=== PATIENT | female | born 1990 | race Caucasian/White ===

== ENCOUNTER 2020-08-17 15:24 | Emergency (ER) | payer OTHER, SELFPAY ==
[2020-08-17 15:36] VITALS: BP 113/75; PULSE 65; RESP 20; TEMP 36.9; O2SAT 100
[2020-08-17] MEDS: ONDANSETRON 4 MG/2 ML INJ IV (16:13)
[2020-08-17] MEDS: SODIUM CHLORIDE 0.9% 1,000 ML 1000 ML IV (16:13)
--- NOTE | 2020-08-17 16:26 | ED.ABDPAIN ---
HPI - Abdominal Pain General Chief Complaint: Abdominal Pain Stated Complaint: ABD pain, N/V Time Seen by Provider: 08/17/20 16:25 Source: EMS Mode of arrival: EMS History of Present Illness HPI narrative: This is a 29-year-old female comes in with complaint of abdominal pain that is been intermittent for the last several days starting . This is 6 days prior. Patient states it started initially was quite severe upper abdomen radiates towards her back. Patient states she has had nausea and vomiting intermittently. She had 3 episodes today. She has had chills but no known fevers. Patient states she has not had any urinary symptoms. She has not had a bowel movement in the last 2-3 days. She states she is not passing gas today. Patient states she had not had similar symptoms before this. Patient denies any medical issues. No prior surgeries. States she has all of her part. She was seen at [facility] ER and states she was evaluated but did not have any imaging. Patient denies any tobacco, alcohol or illicit. Related Data Previous Rx's Medication Instructions Recorded meloxicam 7.5 mg tablet 7.5 mg PO BID #10 tab 08/17/20 Review of Systems Review of Systems ROS Unobtainable: All systems reviewed & are unremarkable except as noted in HPI and below Exam Narrative Exam Narrative: GENERAL: Alert and oriented x three, female in moderate distress. Patient is standing. Patient states she is feels quite uncomfortable HEENT: Head normocephalic, atraumatic, EOMI, pupils reactive, face symmetric, moist mucous membranes NECK: Supple, full range of motion CARDIOVASCULAR: Regular rate and rhythm without murmurs, rubs or gallops. RESPIRATORY: Breath sounds equal bilaterally, no wheezes rales or rhonchi. ABDOMEN: Soft, nontender. Normoactive bowel sounds all 4 quadrants. No guarding or rebound, rigidity, no mass : No CVA tenderness EXTREMITIES: Normal range of motion, no clubbing or edema. Neurovascularly intact NEUROLOGICAL: Cranial nerves II through XII grossly intact. Moving all extremities SKIN: Warm, dry, no petechiae, no rashes or lesions. Initial Vital Signs Initial Vital Signs: Vital Signs Temperature 98.4 F 08/17/20 15:36 Pulse Rate 65 08/17/20 15:36 Respiratory Rate 20 08/17/20 15:36 Blood Pressure 113/75 08/17/20 15:36 Pulse Oximetry 100 08/17/20 15:36 Course Orders Ordered: ED Orders 08/17/20 15:35 EKG-12 Lead Stat 08/17/20 16:10 Complete Blood Count AUTO DIFF Stat Comprehensive Metabolic Panel Stat Lipase Stat 08/17/20 16:40 US abdomen complete Stat Discontinued Medications Sodium Chloride (Normal Saline 0.9%) 1,000 mls @ 1,000 mls/hr IV BOLUS ONE Stop: 08/17/20 16:44 Last Admin: 08/17/20 16:13 Dose: 1,000 mls/hr Documented by: SIA Ketorolac Tromethamine (Ketorolac 30 Mg/Ml Vial) 15 mg IV NOW ONE Stop: 08/17/20 16:40 Last Admin: 08/17/20 17:00 Dose: 15 mg Documented by: ABIEL Magnesium Citrate (Magnesium Citrate 300 Ml Solution) 300 ml PO NOW ONE Stop: 08/17/20 19:21 Ondansetron HCl (Ondansetron 4 Mg/2 Ml Inj) 4 mg IV NOW ONE Stop: 08/17/20 15:46 Last Admin: 08/17/20 16:13 Dose: 4 mg Documented by: SIA Pantoprazole Sodium (Pantoprazole 40 Mg Vial) 40 mg IV NOW ONE Stop: 08/17/20 16:43 Last Admin: 08/17/20 17:00 Dose: 40 mg Documented by: ABIEL Reevaluation(s) Reevaluation #1: Patient feels much better after toradol. Reviewed labs, imaging with patient. On exam she was soft, with epigastric tender but not distended is my suspicion for bowel obstruction is low. Patient was asked return if she has worsening, continuing to have emesis or has not had a bowel movement the next 24 hours. Patient is agreeable to this plan. Vital Signs Vital signs: Vital Signs - 8 hr 08/17/20 15:36 Temperature 98.4 F Pulse Rate 65 Respiratory Rate 20 Blood Pressure 113/75 Pulse Oximetry 100 MDM - Abdominal Pain Lab Data Result diagrams: 08/17/20 16:10 08/17/20 16:10 Labs: Lab Results 08/17/20 08/17/20 Range/Units 16:10 16:10 WBC 9.1 (4.5-11.0) X10^3/uL RBC 4.90 (4.0-5.2) X10^6/uL Hgb 14.6 (12.0-16.0) g/dL Hct 42.9 (36-46) % MCV 87.4 (80-100) fL MCH 29.8 (26-34) PG MCHC 34.1 (30-36) % RDW 13.0 (11.6-14.8) % Plt Count 284 (150-400) X10^3/uL Neut % (Auto) 68.1 (50-75) % Lymph % (Auto) 22.4 L (25-40) % [place] % (Auto) 8.3 (3-14) % Eos % (Auto) 0.6 L (2-4) % Baso % (Auto) 0.6 (0-2) % Neut # (Auto) 6200 (5006-8204) /uL Lymph # (Auto) 2000 (5902-6225) /uL [place] # (Auto) 800 (0-900) /uL Eos # (Auto) 100 (0-450) /uL Baso # (Auto) 100 (0-100) /uL Sodium 140 (137-145) mmol/L Potassium 3.3 L (3.4-5.1) mmol/L Chloride 103 (98-107) mmol/L Carbon Dioxide 25 (22-32) mmol/L BUN 13 (7-17) mg/dL Creatinine 0.94 (0.52-1.04) mg/dL Estimated GFR > 60.0 (>60) mL/min BUN/Creatinine Ratio 13.8 (6-22) Glucose 80 (70-100) mg/dL Calcium 9.8 (8.4-10.2) mg/dL Total Bilirubin 0.8 (0.2-1.3) mg/dL AST 34 (14-36) IU/L ALT 29 (<35) IU/L Alkaline Phosphatase 89 (38-126) U/L Total Protein 8.3 H (6.3-8.2) g/dL Albumin 4.7 (3.5-5.0) g/dL Globulin 3.6 (1.7-4.1) g/dL Albumin/Globulin Ratio 1.3 (1.0-2.8) Lipase 71 (23-300) U/L Point of care testing: Point of Care Testing Test Results Negative Urine Dip Bedside Urine Glucose Negative Bedside Urine Bilirubin - Negative Bedside Urine Ketone +/- 5 Urine Specific [place] 1.015 Bedside Urine Occult Blood - Negative Bedside Urine pH 6.5 Bedside Urine Protein - Negative Bedside Urine Urobilinogen - Negative Bedside Urine Nitrite - Negative Bedside Urine Leukocytes - Negative Esterase Imaging Data US - abdomen: Radiologist's Impression: Magdalena Mercado 29 F [address] [id number] ReportSigned Patient: Madalyn Mercado#: [id number]: 1990Acct:[id number]/Sex: 29 te of Service: 08/17/20Loc: EDAccession Number: [id number] Procedure: US abdomen complete Ordering Provider: Destiny Landin D.O. PROCEDURE: US ABDOMEN COMPLETE INDICATIONS: abdominal pain, no BM> TECHNIQUE: Real-time scanning was performed of the abdominal and retroperitoneal organs, with image documentation. COMPARISON: None. FINDINGS: Liver: Liver is normal in size and homogeneous in echotexture. Gallbladder: Gallbladder is normal in sonographic appearance without gallstones, gallbladder wall thickening, pericholecystic fluid, or abnormal sonographic Morris's. However, patient was given pain medication prior to the study. Biliary ducts: Intrahepatic bile ducts are non-dilated. Extrahepatic bile duct caliber measures 6 mm. Normal is 6-7 mm or less in diameter, or 10 mm or less post-cholecystectomy. Pancreas: Visualized portions of the pancreas are sonographically normal. Spleen: Spleen is normal in size and homogeneous in echotexture. Kidneys: Kidneys are normal in size and echotexture. Right kidney measures 10.5 cm long; left kidney measures 11.5 cm long. No hydronephrosis or nephrolithiasis. No solid masses. Aorta: Visualized aorta is normal in caliber at less than 3 cm. Iliacs: Not imaged IVC: Intrahepatic inferior vena cava is patent. Miscellaneous: No free abdominal fluid. IMPRESSION: Abdomen without acute sonographic abnormalities. No evidence for acute cholecystitis although inaccurate sonographic Morris's cannot be elicited given administration of pain medication prior to this exam. No evidence for cholelithiasis. Dictated by: Manuel Dorantes M.D. on 08/17/2020 at 19:06 Approved by: Manuel Dorantes M.D. on 08/17/2020 at 19:08 ECG Data Interpretation: Sinus bradycardia, rate of 54, QRS of 90, UT 140 and QTC of 417. Discharge Plan Departure Patient Disposition: Home Clinical Impression: Abdominal pain Instructions: DI for Abdominal Pain-Adult Activity Restrictions/Additional Instructions: Follow up in the next 24-48 hours for recheck. Take stool softeners daily until bowel movement. Take 1/2 bottle of Mag citrate, weight 4-5 hours if you have not had any changes drink the 2-1/2nd bottle. You may continue with meloxicam every 12 hours and or Tylenol up to a 1000 mg every 8 hours Please return for fevers, worsening abdominal pain, persistent vomiting, if you have still not had a bowel movement for 24 hours or other new or concerning symptoms. Prescriptions: New meloxicam 7.5 mg tablet 7.5 mg PO BID Qty: 10 RF: 0 Referrals: Wilbur Szymanski MD [Physician] -
--- NOTE | 2020-08-17 16:40 | DI.US.S_ITS ---
PROCEDURE: US ABDOMEN COMPLETE INDICATIONS: abdominal pain, no BM> TECHNIQUE: Real-time scanning was performed of the abdominal and retroperitoneal organs, with image documentation. COMPARISON: None. FINDINGS: Liver: Liver is normal in size and homogeneous in echotexture. Gallbladder: Gallbladder is normal in sonographic appearance without gallstones, gallbladder wall thickening, pericholecystic fluid, or abnormal sonographic Morris's. However, patient was given pain medication prior to the study. Biliary ducts: Intrahepatic bile ducts are non-dilated. Extrahepatic bile duct caliber measures 6 mm. Normal is 6-7 mm or less in diameter, or 10 mm or less post-cholecystectomy. Pancreas: Visualized portions of the pancreas are sonographically normal. Spleen: Spleen is normal in size and homogeneous in echotexture. Kidneys: Kidneys are normal in size and echotexture. Right kidney measures 10.5 cm long; left kidney measures 11.5 cm long. No hydronephrosis or nephrolithiasis. No solid masses. Aorta: Visualized aorta is normal in caliber at less than 3 cm. Iliacs: Not imaged IVC: Intrahepatic inferior vena cava is patent. Miscellaneous: No free abdominal fluid. IMPRESSION: Abdomen without acute sonographic abnormalities. No evidence for acute cholecystitis although inaccurate sonographic Morris's cannot be elicited given administration of pain medication prior to this exam. No evidence for cholelithiasis. Dictated by: Manuel Dorantes M.D. on 08/17/2020 at 19:06 Approved by: Manuel Dorantes M.D. on 08/17/2020 at 19:08
[2020-08-17 16:43] LABS: Add Manual Diff / Slide Review NO; Basophils Absolute Auto 100 /uL (0-100); Basophils Percent Auto 0.6 % (0-2); Eosinophils Absolute Auto 100 /uL (0-450); Eosinophils Percent Auto 0.6 % (2-4); Hematocrit 42.9 % (36-46); Hemoglobin 14.6 g/dL (12.0-16.0); Lymphocytes Absolute Auto 2000 /uL (1100-4500); Lymphocytes Percent Auto 22.4 % (25-40); Mean Corpuscular HGB Conc 34.1 % (30-36); Mean Corpuscular Hemoglobin 29.8 PG (26-34); Mean Corpuscular Volume 87.4 fL (80-100); Monocytes Absolute Auto 800 /uL (0-900); Monocytes Percent Auto 8.3 % (3-14); Neutrophils Absolute Auto 6200 /uL (1500-7000); Neutrophils Percent Auto 68.1 % (50-75); Platelet Count 284 X10^3/uL (150-400); White Blood Cell Count 9.1 X10^3/uL (4.5-11.0)
[2020-08-17 16:53] LABS: Alanine Aminotransferase 29 IU/L (<35); Albumin 4.7 g/dL (3.5-5.0); Albumin Globulin Ratio 1.3 (1.0-2.8); Alkaline Phosphatase 89 U/L (38-126); Aspartate Aminotransferase 34 IU/L (14-36); BUN Creatinine Ratio 13.8 (6-22); Bilirubin Total 0.8 mg/dL (0.2-1.3); Blood Urea Nitrogen 13 mg/dL (7-17); Calcium 9.8 mg/dL (8.4-10.2); Carbon Dioxide 25 mmol/L (22-32); Chloride 103 mmol/L (98-107); Estimated Glomerular Filt Rate > 60.0 mL/min (>60); Globulin 3.6 g/dL (1.7-4.1); Glucose 80 mg/dL (70-100); HEMOLYSIS 48 (0-50); Lipase 71 U/L (23-300); Potassium 3.3 mmol/L (3.4-5.1); Sodium 140 mmol/L (137-145); Total Protein 8.3 g/dL (6.3-8.2)
[2020-08-17] MEDS: KETOROLAC 30 MG/ML VIAL 15 MG IV (17:00)
[2020-08-17] MEDS: PANTOPRAZOLE 40 MG VIAL IV (17:00)
[2020-08-17] MEDS: MAGNESIUM CITRATE 300 ML SOLUTION PO (19:27)
== END 2020-08-17 19:30 | disposition home or self-care (01) ==
PROVIDERS: Emergency Provider Emergency Medicine
DX: R10.9 Unspecified abdominal pain (principal); R11.2 Nausea with vomiting, unspecified
CPT/HCPCS: 36415; 76700; 80053; 81003; 81025; 83690; 85025; 93005; 96361; 96374; 96375; 99284; C9113; J1885; J2405

== ENCOUNTER 2020-08-22 15:09 | Emergency (ER) | payer OTHER, SELFPAY ==
[2020-08-22 15:12] VITALS: BP 139/79; PULSE 89; RESP 20; TEMP 37.3; O2SAT 100
[2020-08-22 16:29] LABS: Add Manual Diff / Slide Review NO; Basophils Absolute Auto 100 /uL (0-100); Basophils Percent Auto 0.7 % (0-2); Eosinophils Absolute Auto 100 /uL (0-450); Eosinophils Percent Auto 1.1 % (2-4); Hemoglobin 14.2 g/dL (12.0-16.0); Lymphocytes Absolute Auto 1700 /uL (1100-4500); Mean Corpuscular HGB Conc 34.7 % (30-36); Mean Corpuscular Hemoglobin 30.3 PG (26-34); Mean Corpuscular Volume 87.2 fL (80-100); Monocytes Absolute Auto 600 /uL (0-900); Monocytes Percent Auto 6.2 % (3-14); Neutrophils Absolute Auto 7000 /uL (1500-7000); Platelet Count 272 X10^3/uL (150-400); White Blood Cell Count 9.4 X10^3/uL (4.5-11.0)
[2020-08-22 16:33] LABS: Alanine Aminotransferase 24 IU/L (<35); Albumin 4.7 g/dL (3.5-5.0); Albumin Globulin Ratio 1.3 (1.0-2.8); Alkaline Phosphatase 86 U/L (38-126); Aspartate Aminotransferase 25 IU/L (14-36); BUN Creatinine Ratio 12.9 (6-22); Bilirubin Total 0.9 mg/dL (0.2-1.3); Blood Urea Nitrogen 11 mg/dL (7-17); Calcium 9.7 mg/dL (8.4-10.2); Carbon Dioxide 23 mmol/L (22-32); Chloride 104 mmol/L (98-107); Estimated Glomerular Filt Rate > 60.0 mL/min (>60); Globulin 3.7 g/dL (1.7-4.1); Glucose 83 mg/dL (70-100); HEMOLYSIS < 15 (0-50); Potassium 3.6 mmol/L (3.4-5.1); Sodium 139 mmol/L (137-145); Total Protein 8.4 g/dL (6.3-8.2)
--- NOTE | 2020-08-22 16:42 | ED.GIBLEED ---
HPI - GI Bleed General Chief complaint: GI Bleed Stated complaint: STOMACH BLEED Time Seen by Provider: 08/22/20 16:39 Source: patient Mode of arrival: Ambulatory History of Present Illness HPI Narrative: Patient is a 29-year-old female who presents with abdominal pain black stool ongoing since August after. She has actually been seen evaluated multiple times once at this hospital and 1 or 2 times at [facility]. She says every time her blood work spine. They think that she is constipated however now she can not stop having diarrhea. She noticed that it was black for the last 2 days concern for bleeding. She is not on any blood thinners. She denies fever chills nausea vomiting Related Data Previous Rx's Medication Instructions Recorded meloxicam 7.5 mg tablet 7.5 mg PO BID #10 tab 08/17/20 Allergies Allergy/AdvReac Type Severity Reaction Status Date / Time No Known Drug Allergies Allergy Verified 08/22/20 15:14 Review of Systems Review of Systems Narrative: GENERAL: Denies chills, fatigue, malaise, fever, sweats, travel HEENT: Denies sinus pain, ear pain, sore throat, difficulty swallowing, neck pain RESPIRATORY: Denies dyspnea, cough, wheezing, hemoptysis, sputum. CARDIOVASCULAR: Denies chest pain, palpitations, orthopnea, edema GASTROINTESTINAL: See HPI : Denies dysuria, frequency, incontinence, hematuria, urinary retention, flank pain. MUSCULOSKELETAL: Denies weakness, joint pain, or bony pain SKIN: No rash, no erythema, no pruritus NEUROLOGIC: Denies weakness, dizziness, headache, numbness, change in speech, confusion PSYCHIATRIC: No concerning psychosocial issues. 12 point review of systems is negative except for those stated above and HPI Exam Initial Vital Signs Initial Vital Signs: Vital Signs Temperature 99.1 F 08/22/20 15:12 Pulse Rate 89 08/22/20 15:12 Respiratory Rate 20 08/22/20 15:12 Blood Pressure 139/79 08/22/20 15:12 Pulse Oximetry 100 08/22/20 15:12 GENERAL: Well-appearing, well-nourished and in no acute distress. HEENT: Head atraumatic,EOMI, pupils reactive, face symmetric, moist mucous membranes CARDIOVASCULAR: Regular rate and rhythm without murmurs, rubs or gallops. RESPIRATORY: Breath sounds equal bilaterally, no wheezes rales or rhonchi. ABDOMEN: Soft, nontender. Normoactive bowel sounds all 4 quadrants. No guarding or rebound. EXTREMITIES: Normal range of motion, no clubbing or edema. Neurovascularly intact NEUROLOGICAL: Alert and oriented x4.Normal gait and speech. SKIN: Warm, dry, no laceration, no petechiae, no rashes or lesions. Course Orders Ordered: Discontinued Medications Pantoprazole Sodium (Pantoprazole 40 Mg Vial) 40 mg IV NOW ONE Stop: 08/22/20 16:54 Last Admin: 08/22/20 16:58 Dose: 40 mg Documented by: REY Vital Signs Vital signs: Vital Signs - 8 hr 08/22/20 15:12 08/22/20 17:03 08/22/20 17:30 Temperature 99.1 F Pulse Rate 89 94 H 95 H Respiratory Rate 20 Blood Pressure 139/79 109/64 Pulse Oximetry 100 100 100 08/22/20 18:00 08/22/20 18:17 Temperature Pulse Rate 95 H 82 Respiratory Rate 16 Blood Pressure 115/73 Pulse Oximetry 100 100 MDM - GI Bleed Lab Data Result diagrams: 08/22/20 16:15 08/22/20 16:15 Labs: Lab Results 08/22/20 08/22/20 08/22/20 Range/Units 16:07 16:07 16:15 WBC 9.4 (4.5-11.0) X10^3/uL RBC 4.70 (4.0-5.2) X10^6/uL Hgb 14.2 (12.0-16.0) g/dL Hct 41.0 (36-46) % MCV 87.2 (80-100) fL MCH 30.3 (26-34) PG MCHC 34.7 (30-36) % RDW 13.0 (11.6-14.8) % Plt Count 272 (150-400) X10^3/uL Neut % (Auto) 74.0 (50-75) % Lymph % (Auto) 18.0 L (25-40) % [place] % (Auto) 6.2 (3-14) % Eos % (Auto) 1.1 L (2-4) % Baso % (Auto) 0.7 (0-2) % Neut # (Auto) 7000 (8171-2472) /uL Lymph # (Auto) 1700 (1539-1796) /uL [place] # (Auto) 600 (0-900) /uL Eos # (Auto) 100 (0-450) /uL Baso # (Auto) 100 (0-100) /uL Sodium (137-145) mmol/L Potassium (3.4-5.1) mmol/L Chloride (98-107) mmol/L Carbon Dioxide (22-32) mmol/L BUN (7-17) mg/dL Creatinine (0.52-1.04) mg/dL Estimated GFR (>60) mL/min BUN/Creatinine Ratio (6-22) Glucose (70-100) mg/dL Calcium (8.4-10.2) mg/dL Total Bilirubin (0.2-1.3) mg/dL AST (14-36) IU/L ALT (<35) IU/L Alkaline Phosphatase (38-126) U/L Total Protein (6.3-8.2) g/dL Albumin (3.5-5.0) g/dL Globulin (1.7-4.1) g/dL Albumin/Globulin Ratio (1.0-2.8) Urine Color Yellow Urine Appearance Clear Urine pH 6.5 (4.5-8.0) Ur Specific [place] <=1.005 (1.000-1.035) Urine Protein Negative (Negative) Urine Glucose (UA) Negative (Negative) g/dL Urine Ketones 1+ H (NEGATIVE) Urine Occult Blood 1+ H (Negative) Urine Nitrate Negative (Negative) Urine Bilirubin Negative (NEGATIVE) Urine Urobilinogen 0.2 (0.2) E.U./dL Ur Leukocyte Esterase Negative (NEGATIVE) Urine RBC 1-5/hpf (0-5/HPF) Urine WBC 0-1/hpf (0-5/HPF) Ur Squamous Epith Cells 1-5 /hpf (0-5/HPF) Amorphous Sediment 2+ Urine Bacteria Few (2-10) H (None) Ur Culture Indicated? Specimen cultured Stl C. cayetanensis PCR Not detected (Not Detect) Stool Rotavirus (PCR) Not detected (Not Detect) Stool Adenovirus (PCR) Not detected (Not Detect) Stool Astrovirus (PCR) Not detected (Not Detect) Stool Cryptosporidium PCR Not detected (Not Detect) Stl E.coli Shiga Tox PCR Not detected (Not Detect) St Sh/Enteroin Ecoli PCR Not detected (Not Detect) Stool E coli O157 PCR Not Reportable Stl Enterotoxigenic E PCR Not detected (Not Detect) Stool EPEC (PCR) Not detected (Not Detect) Stl E. histolytica PCR Not detected (Not Detect) Stool Giardia Lamblia PCR Not detected (Not Detect) Stool Sapovirus (PCR) Not detected (Not Detect) Stl P. shigelloides PCR Not detected (Not Detect) St Y.enterocolitica PCR Not detected (Not Detect) Stool Vibrio (PCR) Not detected (Not Detect) Stl Vibrio cholerae PCR Not detected (Not Detect) Stl Enteroaggr Ecoli PCR Not detected (Not Detect) Stl Norovirus GI/GII PCR Not detected (Not Detect) Campylobacter (PCR) Not detected (Not Detect) C. difficile Tox (PCR) Not detected (Not Detect) Salmonella (PCR) Not detected (Not Detect) 08/22/20 Range/Units 16:15 WBC (4.5-11.0) X10^3/uL RBC (4.0-5.2) X10^6/uL Hgb (12.0-16.0) g/dL Hct (36-46) % MCV (80-100) fL MCH (26-34) PG MCHC (30-36) % RDW (11.6-14.8) % Plt Count (150-400) X10^3/uL Neut % (Auto) (50-75) % Lymph % (Auto) (25-40) % [place] % (Auto) (3-14) % Eos % (Auto) (2-4) % Baso % (Auto) (0-2) % Neut # (Auto) (6173-6715) /uL Lymph # (Auto) (9059-3633) /uL [place] # (Auto) (0-900) /uL Eos # (Auto) (0-450) /uL Baso # (Auto) (0-100) /uL Sodium 139 (137-145) mmol/L Potassium 3.6 (3.4-5.1) mmol/L Chloride 104 (98-107) mmol/L Carbon Dioxide 23 (22-32) mmol/L BUN 11 (7-17) mg/dL Creatinine 0.85 (0.52-1.04) mg/dL Estimated GFR > 60.0 (>60) mL/min BUN/Creatinine Ratio 12.9 (6-22) Glucose 83 (70-100) mg/dL Calcium 9.7 (8.4-10.2) mg/dL Total Bilirubin 0.9 (0.2-1.3) mg/dL AST 25 (14-36) IU/L ALT 24 (<35) IU/L Alkaline Phosphatase 86 (38-126) U/L Total Protein 8.4 H (6.3-8.2) g/dL Albumin 4.7 (3.5-5.0) g/dL Globulin 3.7 (1.7-4.1) g/dL Albumin/Globulin Ratio 1.3 (1.0-2.8) Urine Color Urine Appearance Urine pH (4.5-8.0) Ur Specific [place] (1.000-1.035) Urine Protein (Negative) Urine Glucose (UA) (Negative) g/dL Urine Ketones (NEGATIVE) Urine Occult Blood (Negative) Urine Nitrate (Negative) Urine Bilirubin (NEGATIVE) Urine Urobilinogen (0.2) E.U./dL Ur Leukocyte Esterase (NEGATIVE) Urine RBC (0-5/HPF) Urine WBC (0-5/HPF) Ur Squamous Epith Cells (0-5/HPF) Amorphous Sediment Urine Bacteria (None) Ur Culture Indicated? Stl C. cayetanensis PCR (Not Detect) Stool Rotavirus (PCR) (Not Detect) Stool Adenovirus (PCR) (Not Detect) Stool Astrovirus (PCR) (Not Detect) Stool Cryptosporidium PCR (Not Detect) Stl E.coli Shiga Tox PCR (Not Detect) St Sh/Enteroin Ecoli PCR (Not Detect) Stool E coli O157 PCR Stl Enterotoxigenic E PCR (Not Detect) Stool EPEC (PCR) (Not Detect) Stl E. histolytica PCR (Not Detect) Stool Giardia Lamblia PCR (Not Detect) Stool Sapovirus (PCR) (Not Detect) Stl P. shigelloides PCR (Not Detect) St Y.enterocolitica PCR (Not Detect) Stool Vibrio (PCR) (Not Detect) Stl Vibrio cholerae PCR (Not Detect) Stl Enteroaggr Ecoli PCR (Not Detect) Stl Norovirus GI/GII PCR (Not Detect) Campylobacter (PCR) (Not Detect) C. difficile Tox (PCR) (Not Detect) Salmonella (PCR) (Not Detect) Point of Care Testing Test Results Negative Stool Occult Blood Positive Urine Dip Bedside Urine Glucose Negative Bedside Urine Bilirubin - Negative Bedside Urine Ketone + 15 Urine Specific [place] 1.010 Bedside Urine Occult Blood + Bedside Urine pH 6.0 Bedside Urine Protein - Negative Bedside Urine Urobilinogen - Negative Bedside Urine Nitrite - Negative Bedside Urine Leukocytes - Negative Esterase MDM Narrative Medical decision making narrative: PATIENT HAD A COUPLE OF EPISODES OF DIARRHEA IN THE ED. blood work is the same. No drop in hemoglobin or hematocrit. She is guaiac positive but not on any anti-platelet or anti coagulation medication. I called patient updated her on her GI panel which is negative. She has an appointment with her primary care provider on 08/24/2020 Discharge Plan Departure Patient Disposition: Home Clinical Impression: Diarrhea Instructions: DI for Viral Gastroenteritis -- Adult Activity Restrictions/Additional Instructions: *You have been diagnosed with diarrhea/gastroenteritis *What to do: At this time increase fluid intake. Stool culture is pending. *Continue to take medications as directed *Follow up with your primary care provider in 2-3 days *Return to ER if you should have increasing bloody diarrhea, dizziness lightheadedness, vomiting or any new, worsening or concerning symptoms Prescriptions: No Action meloxicam 7.5 mg tablet 7.5 mg PO BID Qty: 10 RF: 0
--- NOTE | 2020-08-22 16:51 | DI.CT.S_ITS ---
PROCEDURE: CT ABDOMEN PELVIS W CON INDICATIONS: ab pain TECHNIQUE: After the administration of intravenous contrast, axial sections acquired from the lung bases to the pubic symphysis. Coronal and sagittal reformats were performed. For radiation dose reduction, the following was used: automated exposure control, adjustment of mA and/or kV according to patient size. COMPARISON: [facility], , US ABDOMEN COMPLETE, 08/17/2020, 17:01. FINDINGS: Image quality: Excellent. Lung bases: Unremarkable. Heart: No significant findings. ABDOMEN: Liver: Unremarkable. Gallbladder: Unremarkable. Biliary ducts: Unremarkable. Pancreas: Unremarkable. Spleen: Unremarkable. Adrenal Glands: Unremarkable. Kidneys and Ureters: Unremarkable. Stomach and Bowel: Stomach, small bowel loops, and colon are unremarkable. A normal appendix is incidentally noted. Colonic diverticulosis is seen, without findings of active diverticulitis. Peritoneum: No abnormal intraperitoneal fluid. No free air. Ventral Wall: A mild periumbilical hernia is seen, containing fat. Abdominal Nodes: No retroperitoneal or mesenteric adenopathy by size criteria. Vessels: Aorta and inferior vena cava are normal in size. PELVIS: Pelvic Organs: An IUD is seen at its expected location. The cervix is prominent and there is fluid seen along the cervical canal, as on series 5, image 39. Bladder: Unremarkable. Pelvic Nodes: No enlarged lymph nodes. Miscellaneous: No hernias are seen. Bones: Unremarkable. IMPRESSION: Prominent uterine cervix, with fluid seen along the endocervical canal. Please correlate with known patient history. If clinically appropriate, please correlate with physical examination findings. If it would be helpful for clinical management decision making, please consider a dedicated pelvic ultrasound for further evaluation. Normal appendix Incidental note is made of: Fat containing periumbilical hernia IUD Diverticulosis, without active diverticulitis Dictated by: Jay Gonzalez M.D. on 08/22/2020 at 16:20 Approved by: Jay Gonzalez M.D. on 08/22/2020 at 16:24
[2020-08-22] MEDS: PANTOPRAZOLE 40 MG VIAL IV (16:58)
[2020-08-22 17:02] LABS: Appearance Urine UA CLEAR; Bilirubin Urine UA NEGATIVE (NEGATIVE); Color Urine UA YELLOW; Glucose Urine UA NEGATIVE (Negative); Ketones Urine UA 1+ (NEGATIVE); Leukocyte Esterase Urine UA NEGATIVE (NEGATIVE); Nitrite Urine UA NEGATIVE (Negative); Occult Blood Urine UA 1+ (Negative); Protein Urine UA NEGATIVE (Negative); Specific Gravity Urine UA <=1.005 (1.000-1.035); Urobilinogen Urine UA 0.2 E.U./dL (0.2); pH Urine UA 6.5 (4.5-8.0)
[2020-08-22 17:03] VITALS: BP 109/64; PULSE 94; O2SAT 100
[2020-08-22 17:10] LABS: Amorphous Sediment Urine 2+; Bacteria Urine Few (2-10); RBC Urine 1-5/HPF (0-5/HPF); Squamous Epithelial Cell Urine 1-5 /HPF (0-5/HPF); WBC Urine 0-1/HPF (0-5/HPF)
[2020-08-22 17:11] LABS: Culture Indicated Urine Specimen Cultured
[2020-08-22 17:30] VITALS: PULSE 95; O2SAT 100
[2020-08-22 18:00] VITALS: PULSE 95; O2SAT 100
[2020-08-22 18:17] VITALS: BP 115/73; PULSE 82; RESP 16; O2SAT 100
[2020-08-22 20:07] LABS: Adenovirus F 40/41 Not Detected (Not Detect); Astrovirus Not Detected (Not Detect); Campylobacter Not Detected (Not Detect); Clostridium difficile toxin AB Not Detected (Not Detect); Cryptosporidium Not Detected (Not Detect); Cyclospora cayetanensis Not Detected (Not Detect); Entamoeba histolytica Not Detected (Not Detect); Enteroaggregative E.coli Not Detected (Not Detect); Enteropathogenic E.coli Not Detected (Not Detect); Enterotoxigenic E.coli It/st Not Detected (Not Detect); Giardia lamblia Not Detected (Not Detect); Norovirus GI/GII Not Detected (Not Detect); Plesiomonsa shigelloides Not Detected (Not Detect); Rotavirus A Not Detected (Not Detect); Salmonella Not Detected (Not Detect); Sapovirus Not Detected (Not Detect); Shiga-like toxin-prod E.coli Not Detected (Not Detect); Shigella/Enteroinvasive E.coli Not Detected (Not Detect); Vibrio Not Detected (Not Detect); Vibrio cholerae Not Detected (Not Detect); Yersinia enterocolitica Not Detected (Not Detect)
== END 2020-08-22 18:40 | disposition home or self-care (01) ==
PROVIDERS: Emergency Provider Emergency Medicine
DX: R19.7 Diarrhea, unspecified (principal)
CPT/HCPCS: 36415; 74177; 80053; 81001; 81003; 81025; 82272; 85025; 87086; 87507; 96374; 99284; C9113; Q9967

== ENCOUNTER 2020-09-08 14:19 | Emergency (ER) | payer OTHER, SELFPAY | END 2020-09-08 15:00 | disposition left against medical advice (07) | PROVIDERS: Emergency Provider Emergency Medicine; PCP Physician Assistant ==

== ENCOUNTER → 2020-09-13 12:56 | Outpatient (CLI) | payer OTHER, SELFPAY ==
[2020-09-13 16:26] LABS: COVID19 -Nasal RAPID Negative (Negative)
== END ==
PROVIDERS: PCP Physician Assistant; Visit Provider Physician Assistant
DX: Z01.812 Encounter for preprocedural laboratory examination (principal); Z20.822 Contact with and (suspected) exposure to COVID-19
CPT/HCPCS: 87635

== ENCOUNTER 2020-09-14 12:56 | Day surgery (SDC) | payer OTHER, SELFPAY ==
--- NOTE | 2020-09-14 | PATH_ITS ---
[facility] Accession Number: [id number] . 01 Material submitted: . PART A: stomach - ANTRUM PART B: duodenum - DUODENUM . 02 Diagnosis: A. Stomach, Antrum, Biopsies: Antral mucosa with mild chronic gastritis. Negative for Helicobacter by immunohistochemistry. Negative for intestinal metaplasia. Negative for dysplasia and malignancy. . B. Duodenum, Biopsy: Superficial small bowel mucosa with gastric surface foveolar metaplasia suggestive of peptic duodenitis. Negative for intraepithelial lymphocytosis. Negative for dysplasia and malignancy. [facility] 09/17/2020 1234 Local . 02 Electronically signed: . Bessie Catalan MD, Pathologist NPI- [id number] . 01 Gross description: . Part A: ANTRUM: Received in formalin are 2 fragment(s) of obando, soft tissue measuring 0.3 x 0.3 x 0.2 cm to 0.3 x 0.2 x 0.1 cm submitted entirely in 1 cassette(s) Part B: DUODENUM: Received in formalin are multiple fragment(s) of obando, soft tissue measuring 0.3 x 0.2 x 0.1 cm in aggregate submitted entirely in 1 cassette(s) /[facility] 09/15/2020 0437 Local . 02 Microscopic: . A. An immunohistochemical stain was performed to evaluate for Helicobacter organisms and is negative. The control stain showed appropriate reactivity. . * This test was developed and its performance characteristics determined by [facility]. It has not been cleared or approved by the U.S. Food and Drug Administration. The FDA has determined that such clearance or approval is not necessary. This test is used for clinical purposes. It should not be regarded as investigational or for research. . 02 Pathologist provided ICD-10: R10.13 . 02 CPT . 593593, 763374, E02300 Performed at: 01 [facility] [address] [place] [address], [place], [place] [id number] MD Chano Hodges MD Phone: [phone] Performed at: 02 [facility] [address] [place], [place] [id number] MD Bessie Catalan MD Phone: [phone]
[2020-09-14 13:14] VITALS: BP 129/90; PULSE 106; RESP 16; TEMP 36.8; O2SAT 100; BMI 31.6
[2020-09-14] MEDS: SODIUM CHLORIDE 0.9% 1,000 ML 100 ML IV (13:22)
--- NOTE | 2020-09-14 14:43 | PM.HP.1 ---
History of Present Illness History of Present Illness Date Patient Seen: 09/14/20 Time Patient Seen: 14:44 Chief complaint: SDC Narrative: I reviewed dr Blanton's note. N/v, ab pain, dark stools, dysphagia. Patient History Family & Social History Social History: household members spouse,children Tobacco & Substance use: Smoking Status Former smoker alcohol intake frequency a few times a month Substance Use Type does not use Meds Home Medications and Allergies Home Medications Medication Instructions Recorded Confirmed Type omeprazole 20 mg capsule,delayed 20 mg PO DAILY 09/14/20 09/14/20 History release Allergies Allergy/AdvReac Type Severity Reaction Status Date / Time Latex, Natural Rubber AdvReac Intermediate Verified 09/14/20 13:12 Review of Systems Review of Systems ROS: Yes All systems reviewed with the patient and are negative except as otherwise documented Exam Vital Signs (past 8 hours): - 09/14/20 13:14 Temperature 98.2 F Pulse Rate 106 H Respiratory Rate 16 Blood Pressure 129/90 Pulse Oximetry 100 Oxygen Delivery Method Room Air Const General: cooperative and comfortable Orientation: alert HENRI Head: normocephalic Ears: external ears normal Nose: external nose normal Face and sinus: normal facial exam Mouth: oral mucosae normal Eyes General: appearance normal, both eyes and all related structures Neck Neck: normal visual inspection Chest Chest: normal inspection of the chest Resp Effort & Inspection: normal respiratory effort Auscultation: clear to auscultation bilaterally Cardio Rate: regular rate Rhythm: regular rhythm Heart Sounds: no murmurs GI Inspection: normal to inspection Palpation: soft and No tender Auscultation: normal bowel sounds Skin General: no rashes or lesions noted and No jaundice Neuro General: patient alert and moves all extremities Cognition: normal cognition Speech: speech normal Extrem General: no pedal edema Psych Appearance: grossly normal Assessment & Plan Assessment & Plan narrative: n/v, ab pain, dark stools, dysphagia. EGD today.
--- NOTE | 2020-09-14 14:45 | PM.PREOP ---
Pre-operative Note COVID-19 COVID-19 status: Negative Result date/Date tested (Pos, Neg/Pending): 09/13/20 Interval Note History & Physical reviewed/Exam performed by Physician: Yes Changes to H&P: No ASA Class (for procedural sedation): II
[2020-09-14] MEDS: LIDOCAINE 4% SOLN 50 ML 20 ML TOP (14:53)
[2020-09-14] MEDS: fentaNYL 250 MCG/5 ML INJ IV (14:54)
[2020-09-14] MEDS: MIDAZOLAM 5 MG/5 ML VIAL IV (14:54)
--- NOTE | 2020-09-14 15:10 | PM.OP.ENDO ---
Operative Date/Time/Diagnoses Date of procedure: 09/14/20 Time of procedure: 15:10 Pre-op diagnosis: n/v/ab pain, melena Post-op diagnosis: same Procedure & Clinicians Study performed: EGD with biopsies Same procedure as scheduled: Yes Indications: Nausea vomiting abdominal pain melena Surgeon: Margarito King Procedure Notes SCOAP/Timeout: Done Procedure in detail: After the risks and benefits were explained, written and verbal informed consent was obtained. The patient was brought into the procedure room and placed into the left lateral decubitus position. Conscious sedation medication was applied as per nursing documentation. The scope was introduced into the mouth through the bite block and advanced under direct visualization to the 2nd portion of the duodenum. The scope was slowly withdrawn carefully examining the mucosa for any defects or lesions. Retroflexed views were accomplished in the stomach. The stomach was decompressed, the scope was then removed from the patient who tolerated the procedure well. 8 mg Versed 150 mcg sentinel Scope withdrawal time: Not applicable Sedation minutes: 16 Complications: none Impression: 1. Esophagus: Patient had evidence of LA grade B erosive esophagitis. The remainder of the esophagus was unremarkable. GE junction was at approximately 36 cm from the incisors. 2. Stomach: No gastric outlet obstruction no ulcers no significant erosions. Retroflexed views were unremarkable of the LES. If she biopsies from the antrum were taken at random for exclusion of Helicobacter pylori infection. 3. Duodenum: In the duodenal bulb was a deeply excavated 7-8mm ulcer with what appeared to be a bland base. The surrounding mucosa was deeply erythematous and slightly friable. I took a biopsy from the EG surrounding mucosa for histopathologic analysis. This ulcer appeared to be on the anterior wall and I was able to fairly easily navigate past this inflamed region into the 2nd portion of the duodenum proper. Endoscopic diagnosis 1. Duodenal ulcer 2. LA grade B erosive esophagitis Post-procedure Plan for aftercare: 1. Await histopathology 2. If Helicobacter is found it will need to be eradicated with standard triple therapy. 3. Continue b.i.d. proton pump inhibitor therapy. 4. Smoothie consistency diet for now advancing as tolerated in the days ahead. 5. Consider repeat EGD in 8 weeks to confirm ulcer healing. 6. Follow up GI clinic within the next 1-2 weeks. Follow up: weeks Disposition: PACU
[2020-09-14 15:16] VITALS: BP 126/72; PULSE 98; RESP 11; TEMP 35.8; O2SAT 96
[2020-09-14 15:21] VITALS: BP 106/69; PULSE 90; RESP 12; TEMP 36.2; O2SAT 98
[2020-09-14 15:26] VITALS: BP 105/67; PULSE 94; RESP 17; TEMP 36.7; O2SAT 98
[2020-09-14 15:32] VITALS: BP 103/66; PULSE 98; RESP 15; TEMP 36.6; O2SAT 96
[2020-09-14 15:54] VITALS: BP 101/69; PULSE 104; RESP 13; TEMP 36.3; O2SAT 97
== END 2020-09-14 16:05 | disposition home or self-care (01) ==
PROVIDERS: PCP Physician Assistant; Referring Provider Internal Medicine Gastroenterology; Visit Provider Internal Medicine Gastroenterology
PROC: 0DJ08ZZ Inspection of Upper Intestinal Tract, Via Natural or Artificial Opening Endoscopic (ICD-10-PCS; CPT 43235; principal; 2020-09-14 14:00)
DX: K29.50 Unspecified chronic gastritis without bleeding (principal); K26.9 Duodenal ulcer, unspecified as acute or chronic, without hemorrhage or perforation; K20.80 Other esophagitis without bleeding
CPT/HCPCS: 43239; J2250; J3010

== ENCOUNTER → 2020-11-09 09:28 | Day surgery (SDC) | payer OTHER, SELFPAY ==
[2020-11-09] VITALS (7 sets, daily range): BP systolic 106–123; BP diastolic 61–79; PULSE 69–84; RESP 12–18; TEMP 36.1–36.6; O2SAT 98–100; BMI 32.4
[2020-11-09 11:04] LABS: COVID19 -Nasal RAPID Negative (Negative)
[2020-11-09] MEDS: SODIUM CHLORIDE 0.9% 1,000 ML 125 ML IV (11:22)
--- NOTE | 2020-11-09 11:24 | PM.HP.1 ---
History of Present Illness History of Present Illness Date Patient Seen: 11/09/20 Time Patient Seen: 11:25 Chief complaint: SDC Narrative: Here for upper endoscopy. I reviewed Dr. Blanton's recent office visit from October 05. The patient feels much improved she remains on PPI. Patient History Family & Social History Social History: household members spouse,children Tobacco & Substance use: Smoking Status Former smoker alcohol intake frequency a few times a month Substance Use Type does not use Meds Home Medications and Allergies Home Medications Medication Instructions Recorded Confirmed Type omeprazole 20 mg capsule,delayed 20 mg BID 11/09/20 11/09/20 History release Allergies Allergy/AdvReac Type Severity Reaction Status Date / Time Latex, Natural Rubber AdvReac Intermediate Verified 11/09/20 10:31 Review of Systems Review of Systems ROS: Yes All systems reviewed with the patient and are negative except as otherwise documented Exam Vital Signs (past 8 hours): - 11/09/20 11:08 Temperature 97.6 F Pulse Rate 84 Respiratory Rate 18 Blood Pressure 123/79 Pulse Oximetry 100 Oxygen Delivery Method Room Air Const General: cooperative and comfortable Orientation: alert HENMT Head: normocephalic Ears: external ears normal Nose: external nose normal Face and sinus: normal facial exam Mouth: oral mucosae normal Eyes General: appearance normal, both eyes and all related structures Neck Neck: normal visual inspection Chest Chest: normal inspection of the chest Resp Effort & Inspection: normal respiratory effort Auscultation: clear to auscultation bilaterally Cardio Rate: regular rate Rhythm: regular rhythm Heart Sounds: no murmurs GI Inspection: normal to inspection Palpation: soft and No tender Auscultation: normal bowel sounds Skin General: no rashes or lesions noted and No jaundice Neuro General: patient alert and moves all extremities Cognition: normal cognition Speech: speech normal Extrem General: no pedal edema Psych Appearance: grossly normal Objective Labs Labs: Laboratory Results - last 24 hr 11/09/20 10:44 SARS-CoV-2 (PCR) Negative Assessment & Plan Assessment & Plan narrative: History of esophagitis history of duodenal ulcer. Doing well on PPI. Repeat EGD is pursued today to assess for healing. Time Spent With Patient Critical Care time: I spent a total of [] minutes of critical care time on this patient's care today; this time is exclusive of procedural time.
--- NOTE | 2020-11-09 11:26 | PM.PREOP ---
Pre-operative Note COVID-19 COVID-19 status: Negative Result date/Date tested (Pos, Neg/Pending): 11/09/20 Interval Note History & Physical reviewed/Exam performed by Physician: Yes Changes to H&P: No ASA Class (for procedural sedation): II
[2020-11-09] MEDS: LIDOCAINE 4% SOLN 50 ML 20 ML TOP (11:41)
--- NOTE | 2020-11-09 11:41 | P.OP.ENDO_ITS ---
Operative Date/Time/Diagnoses Date of procedure: 11/09/20 Time of procedure: 11:41 Pre-op diagnosis: LA grade B erosive esophagitis and duodenal ulceration Post-op diagnosis: same Procedure & Clinicians Study performed: EGD Same procedure as scheduled: Yes Indications: Esophagitis and duodenal ulceration Surgeon: Margarito King Procedure Notes SCOAP/Timeout: Done Procedure in detail: After the risks and benefits were explained, written and verbal informed consent was obtained. The patient was brought into the procedure room and placed into the left lateral decubitus position. Please see nurse tool and die repair sedation notes. The scope was introduced into the mouth through the bite block and advanced under direct visualization to the 2nd portion of the duodenum. The scope was slowly withdrawn carefully examining the mucosa for any defects or lesions. Retroflexed views were accomplished in the stomach. The stomach was decompressed, the scope was then removed from the patient who tolerated the procedure well. Scope withdrawal time: Not applicable Sedation minutes: 7 Specimen(s): none sent Complications: none Impression: 1. Esophagus: The GE junction was at approximately 38 cm from the incisors. There was no evidence of any esophagitis. This was consistent with complete healing compared with the prior examination. The remainder of the esophagus was unremarkable. 2. Stomach: No outlet obstruction no ulcers no mass lesions. Retroflexed views of the LES were unremarkable. 3. Duodenum: The previously identified duodenal ulcer had essentially completely healed. We compared the photographs from the prior exam today. No residual ulceration present. There was some diffuse erythema consistent with the healing process in the duodenal bulb with a couple of scattered subtle erosions. No mass lesions appreciated no stricturing. I did not repeat biopsies today. The 2nd portion of the duodenum was entirely normal. Endoscopic diagnosis 1. Healed esophagitis 2. Well healed duodenal ulceration Post-procedure Plan for aftercare: 1. Reduce omeprazole back down to once daily. 2. Follow up in GI clinic for overall progress report in the next few months. Disposition: PACU
== END | disposition home or self-care (01) ==
PROVIDERS: PCP Physician Assistant; Referring Provider Internal Medicine Gastroenterology; Visit Provider Internal Medicine Gastroenterology
PROC: 0DJ08ZZ Inspection of Upper Intestinal Tract, Via Natural or Artificial Opening Endoscopic (ICD-10-PCS; CPT 43235; principal; 2020-11-09 11:00)
DX: Z87.19 Personal history of other diseases of the digestive system (principal); Z20.822 Contact with and (suspected) exposure to COVID-19
CPT/HCPCS: 43235; 87635; J2704